=== PATIENT | female | born 1945 | race Caucasian/White ===

== ENCOUNTER 2018-05-16 16:45 | Emergency (ER) | payer MEDICAID ==
[2018-05-16] MEDS: HYDROCODONE/APAP (5/325) TAB PO (17:25)
[2018-05-16 17:36] LABS: URINE BLOOD (Dip) POC Negative (NEGATIVE); URINE KETONES (Dip) POC 1+ (NEGATIVE); URINE LEUKOCYTE EST (Dip) POC Negative (NEGATIVE); URINE NITRITE (Dip) POC Negative (NEGATIVE); URINE TOTAL PROTEIN POC 2+ (NEGATIVE)
[2018-05-16 17:36] LABS: URINE PH (Dip) POC 5.5 (5.0-8.5)
== END 2018-05-16 18:06 | disposition home or self-care (01) ==
LOC: FTE 16:45
DX: M54.5 Low back pain (principal); E11.9 Type 2 diabetes mellitus without complications
CPT/HCPCS: 81003; 99284

== ENCOUNTER → 2018-07-25 | Outpatient (CLI) | payer OTHER | END | disposition home or self-care (01) | LOC: HKI 13:13 | DX: M16.0 Bilateral primary osteoarthritis of hip (principal); I10 Essential (primary) hypertension; E11.8 Type 2 diabetes mellitus with unspecified complications; E78.5 Hyperlipidemia, unspecified; Z79.4 Long term (current) use of insulin; Z79.84 Long term (current) use of oral hypoglycemic drugs | CPT/HCPCS: 73523 ==

== ENCOUNTER → 2018-08-21 | Outpatient (CLI) | payer OTHER | END | disposition home or self-care (01) | LOC: HKI 09:10 | DX: M54.9 Dorsalgia, unspecified (principal); M54.16 Radiculopathy, lumbar region | CPT/HCPCS: Z7500 ==

== ENCOUNTER → 2018-09-25 | Outpatient (CLI) | payer OTHER | END | disposition home or self-care (01) | LOC: HKI 08:58 | DX: M16.0 Bilateral primary osteoarthritis of hip (principal); I10 Essential (primary) hypertension; E11.8 Type 2 diabetes mellitus with unspecified complications; Z79.4 Long term (current) use of insulin; Z79.84 Long term (current) use of oral hypoglycemic drugs; E78.5 Hyperlipidemia, unspecified | CPT/HCPCS: Z7500 ==

== ENCOUNTER → 2019-02-27 | Outpatient (CLI) | payer OTHER | END | disposition home or self-care (01) | LOC: HKI 15:10 | DX: M25.552 Pain in left hip (principal); M25.551 Pain in right hip; M16.0 Bilateral primary osteoarthritis of hip | CPT/HCPCS: 73523 ==

== ENCOUNTER 2019-05-16 05:38 | Inpatient (IN) | payer OTHER ==
[2019-05-16] MEDS: ACETAMINOPHEN 500 MG TAB PO (06:36)
[2019-05-16] MEDS: DEXAMETHASONE 4 MG/ML 1 ML INJ IV (06:36)
[2019-05-16] MEDS: ONDANSETRON 4 MG INJ IV ×3 (06:36→18:47)
[2019-05-16] MEDS: oxyCODONE (CR) 10 MG TAB [oxyCONTIN] PO (06:37)
[2019-05-16] MEDS: LANSOPRAZOLE 30 MG CAP PO (06:37)
[2019-05-16] MEDS ORDERED: TRANEXAMIC ACID 1 GM/100 ML (PMX) (07:00)
[2019-05-16] MEDS: CEFAZOLIN 1 GM/50 ML (PMX) 50 ML IVPB (07:00)
[2019-05-16] MEDS ORDERED: PHENYLephrine (100 MCG/ML) 10ML SYG (07:00)
[2019-05-16] MEDS ORDERED: EPHEDrine 25 MG/5 ML SYG (07:00)
[2019-05-16] MEDS ORDERED: POLYMYXIN B 500000 UNIT INJ (07:02)
[2019-05-16] MEDS ORDERED: TRANEXAMIC ACID 1GM/100ML(PMX) 100 ML (07:03)
[2019-05-16] MEDS ORDERED: HIP PAIN COCKTAIL VANCO INJ ×2 (07:30→15:30)
[2019-05-16] MEDS ORDERED: ROCURONIUM 50 MG INJ (07:38)
[2019-05-16] MEDS ORDERED: ETOMIDATE 20 MG INJ (07:38)
[2019-05-16] MEDS ORDERED: CEFAZOLIN 1 GM INJ (07:38)
[2019-05-16] MEDS ORDERED: MIDAZOLAM 1 MG/ML 2 ML INJ (07:39)
[2019-05-16] MEDS ORDERED: morphine SULFATE/PF (10 MG/10 ML) INJ (07:39)
[2019-05-16] MEDS ORDERED: ROPIVACAINE 0.5 % 30 ML VIAL (07:46)
[2019-05-16] MEDS: POLYMYXIN B 500000 UNIT INJ IRR (08:27)
[2019-05-16] MEDS: BACITRACIN 50000 UNITS INJ (08:27)
[2019-05-16] MEDS: TRANEXAMIC ACID 1GM/100ML(PMX) 100 ML PRE-OP X1 IVPB (08:28)
[2019-05-16] MEDS ORDERED: METOCLOPRAMIDE 10 MG INJ (08:35)
[2019-05-16] MEDS ORDERED: DEXAMETHASONE 4 MG/ML 5 ML INJ (08:35)
[2019-05-16] MEDS ORDERED: ONDANSETRON 4 MG INJ (08:35)
[2019-05-16] MEDS ORDERED: KETOROLAC 30 MG INJ (08:35)
[2019-05-16] MEDS ORDERED: HETASTARCH 6% NACL 500 ML (08:49)
[2019-05-16] MEDS: TRANEXAMIC ACID 1GM/100ML(PMX) 100 ML INTRA-OP X1 IVPB (09:32)
[2019-05-16] MEDS ORDERED: SUGAMMADEX SODIUM 200 MG/2 ML VIAL IV ×2 (09:38→09:41)
[2019-05-16] MEDS ORDERED: ONDANSETRON 4 MG INJ IV ×3 (10:30→22:30)
[2019-05-16] MEDS ORDERED: OXYCODONE/ACETAMINOPHEN (5/325) TAB PO ×2 (10:30)
[2019-05-16] MEDS ORDERED: DIPHENHYDRAMINE 50 MG INJ IV ×2 (10:30)
[2019-05-16] MEDS ORDERED: MEPERIDINE 25 MG INJ IV (10:30)
[2019-05-16] MEDS ORDERED: HYDROCODONE/APAP (5/325) TAB PO (10:30)
[2019-05-16] MEDS ORDERED: NACL 0.9% 3 ML SYG IV (10:30)
[2019-05-16] MEDS ORDERED: HYDROmorphONE 1 MG/5 ML IV SYRINGE IV ×2 (10:30)
[2019-05-16] MEDS ORDERED: oxyCODONE 5 MG TAB PO (10:30)
[2019-05-16] MEDS ORDERED: METOCLOPRAMIDE 10 MG INJ IV ×2 (10:30→22:00)
[2019-05-16] MEDS ORDERED: NALBUPHINE HCL (10 MG/1 ML) INJ IV (10:30)
[2019-05-16] MEDS ORDERED: HYDROmorphONE 0.5 MG/0.5 ML SYG IV ×2 (10:30)
[2019-05-16] MEDS ORDERED: NALOXONE (0.4 MG/ML) INJ IV ×2 (10:30)
[2019-05-16] MEDS ORDERED: ACETAMINOPHEN 500 MG TAB PO (10:30)
[2019-05-16] MEDS ORDERED: FENTAnyl 50 MCG/ML VIAL IV ×2 (10:30)
[2019-05-16] MEDS ORDERED: morphine 2 MG INJ IV (10:30)
[2019-05-16] MEDS: CEFAZOLIN 2 GM/50 ML (PMX) 50 ML IVPB ×2 (11:01→18:29)
[2019-05-16] MEDS: DOCUSATE SODIUM 100 MG CAP PO (11:08)
[2019-05-16] MEDS: INSULIN ASPART [NOVOLOG] 3 ML PEN SC ×6 (12:00→21:00)
[2019-05-16] MEDS ORDERED: DEXTROSE 50% 50 ML SYRINGE IV ×2 (13:00)
[2019-05-16] MEDS ORDERED: GLUCOSE GEL 15 GRAM TUBE PO ×2 (13:00)
[2019-05-16] MEDS ORDERED: GLUCOSE GEL 15 GRAM TUBE BUCCAL (13:00)
[2019-05-16] MEDS ORDERED: GLUCAGON 1 MG INJ IM (13:00)
[2019-05-16] MEDS: SOD CHLORIDE 0.45% 1,000 ML IV (13:35)
[2019-05-16] MEDS: AMLODIPINE 10 MG TAB PO (13:44)
[2019-05-16] MEDS: GABAPENTIN 100 MG CAP PO ×2 (13:45→20:54)
[2019-05-16] MEDS: morphine 2 MG INJ IV (18:29)
[2019-05-16] MEDS ORDERED: INSULIN GLARGINE [LANTus] (100 UNITS/ML) SYG SC (20:00)
[2019-05-16] MEDS: INSULIN GLARGINE [LANTus] (100 UNITS/ML) SYG SC (20:42)
[2019-05-16] MEDS: ATORVASTATIN 40 MG TAB PO (20:54)
[2019-05-16] MEDS ORDERED: ONDANSETRON INJ 8 MG in SOD CHLORIDE 0.9% 50 ML IV (22:30)
[2019-05-17] MEDS: ONDANSETRON 4 MG INJ IV ×2 (01:00→07:00)
[2019-05-17] MEDS: ACCU-CHEK XX (02:00)
[2019-05-17] MEDS: CEFAZOLIN 2 GM/50 ML (PMX) 50 ML IVPB (02:51)
[2019-05-17] MEDS ORDERED: PANTOPRAZOLE (EC) 40 MG TAB PO (06:00)
[2019-05-17] MEDS: HYDROCHLOROTHIAZIDE 12.5 MG CAP PO (06:00)
[2019-05-17 06:02] LABS: ADD MAN DIFF? NO
[2019-05-17 06:05] LABS: BASOPHILS % 0.1 % (0.0-2.0); HEMOGLOBIN 8.5 g/dl (12.0-16.0); LYMPHOCYTES # 1.3 10^3/ul (0.8-2.9); LYMPHOCYTES % 8.4 % (15.0-51.0); MEAN CORPUSCULAR HEMOGLOBIN 28.2 pg (29.0-33.0); MEAN CORPUSCULAR HGB CONC 31.5 g/dl (32.0-37.0); MEAN CORPUSCULAR VOLUME 89.7 fl (82.0-101.0); MEAN PLATELET VOLUME 11.6 fl (7.4-10.4); MONOCYTE # 0.9 10^3/ul (0.3-0.9); MONOCYTES % 5.9 % (0.0-11.0); NEUTROPHIL # 12.7 10^3/ul (1.6-7.5); NEUTROPHILS % 84.9 % (39.0-77.0); PLATELET COUNT 230 10^3/UL (140-415); RED BLOOD COUNT 3.01 10^6/ul (4.20-5.40); RED CELL DISTRIBUTION WIDTH 12.8 % (11.5-14.5)
[2019-05-17] MEDS: PANTOPRAZOLE (EC) 40 MG TAB PO (06:20)
[2019-05-17 06:30] LABS: INR 1.05; PROTIME 13.8 Sec (11.9-14.9); PT RATIO 1.1
[2019-05-17 06:31] LABS: MAGNESIUM 1.9 mg/dl (1.7-2.5)
[2019-05-17 06:31] LABS: PHOSPHORUS 4.8 mg/dl (2.5-4.9)
[2019-05-17 06:49] LABS: ANION GAP 8 (5-13); BLOOD UREA NITROGEN 24 mg/dl (7-20); CALCIUM 8.1 mg/dl (8.4-10.2); CARBON DIOXIDE 29 mmol/L (21-31); CHLORIDE 109 mmol/L (97-110); CREATININE 0.69 mg/dl (0.44-1.00); GLUCOSE 146 mg/dl (70-220); POTASSIUM 4.3 mmol/L (3.5-5.1); SODIUM 146 mmol/L (135-144)
[2019-05-17] MEDS: INSULIN ASPART [NOVOLOG] 3 ML PEN SC ×7 (07:50→21:00)
[2019-05-17] MEDS: INSULIN GLARGINE [LANTus] (100 UNITS/ML) SYG SC ×2 (08:28→20:42)
[2019-05-17] MEDS: AMLODIPINE 10 MG TAB PO (08:30)
[2019-05-17] MEDS: LOSARTAN 50 MG TAB PO (08:30)
[2019-05-17] MEDS: CELECOXIB 100 MG CAP PO ×2 (08:37→20:22)
[2019-05-17] MEDS: FENOFIBRATE 145 MG TAB PO (08:37)
[2019-05-17] MEDS: ASPIRIN (EC) 81 MG TAB PO ×2 (08:39→20:23)
[2019-05-17] MEDS: GABAPENTIN 100 MG CAP PO ×3 (08:39→20:23)
[2019-05-17] MEDS: KETOROLAC 15 MG INJ IV ×2 (08:47→15:53)
[2019-05-17] MEDS ORDERED: AMLODIPINE 10 MG TAB PO (09:00)
[2019-05-17] MEDS: traMADol 50 MG TAB PO ×2 (11:55→20:23)
[2019-05-17] MEDS: SOD CHLORIDE 0.45% 1,000 ML IV (13:30)
[2019-05-17] MEDS ORDERED: HYDROCODONE/APAP (5/325) TAB PO (17:00)
[2019-05-17] MEDS: ATORVASTATIN 40 MG TAB PO (20:23)
[2019-05-18] MEDS: ACCU-CHEK XX (02:00)
[2019-05-18 05:05] LABS: ADD MAN DIFF? NO
[2019-05-18 05:12] LABS: WHITE BLOOD COUNT 9.9 10^3/ul (4.8-10.8)
[2019-05-18 05:12] LABS: BASOPHILS % 0.3 % (0.0-2.0); EOSINOPHILS # 0.1 10^3/ul (0.0-0.5); EOSINOPHILS % 0.7 % (0.0-7.0); HEMATOCRIT 24.7 % (37.0-47.0); HEMOGLOBIN 7.7 g/dl (12.0-16.0); LYMPHOCYTES # 2.3 10^3/ul (0.8-2.9); LYMPHOCYTES % 23.1 % (15.0-51.0); MEAN CORPUSCULAR HEMOGLOBIN 27.9 pg (29.0-33.0); MEAN CORPUSCULAR HGB CONC 31.2 g/dl (32.0-37.0); MEAN CORPUSCULAR VOLUME 89.5 fl (82.0-101.0); MEAN PLATELET VOLUME 11.5 fl (7.4-10.4); MONOCYTE # 0.9 10^3/ul (0.3-0.9); MONOCYTES % 8.6 % (0.0-11.0); NEUTROPHIL # 6.6 10^3/ul (1.6-7.5); NEUTROPHILS % 66.7 % (39.0-77.0); PLATELET COUNT 206 10^3/UL (140-415); RED BLOOD COUNT 2.76 10^6/ul (4.20-5.40)
[2019-05-18 05:30] LABS: INR 0.96; PROTIME 12.9 Sec (11.9-14.9)
[2019-05-18 05:36] LABS: MAGNESIUM 2.3 mg/dl (1.7-2.5)
[2019-05-18 05:36] LABS: PHOSPHORUS 3.3 mg/dl (2.5-4.9)
[2019-05-18 05:46] LABS: ANION GAP 6 (5-13); BLOOD UREA NITROGEN 30 mg/dl (7-20); CALCIUM 8.5 mg/dl (8.4-10.2); CARBON DIOXIDE 30 mmol/L (21-31); CHLORIDE 109 mmol/L (97-110); CREATININE 0.94 mg/dl (0.44-1.00); GLUCOSE 132 mg/dl (70-220); SODIUM 145 mmol/L (135-144)
[2019-05-18] MEDS: PANTOPRAZOLE (EC) 40 MG TAB PO (05:57)
[2019-05-18] MEDS: traMADol 50 MG TAB PO ×3 (05:57→18:06)
[2019-05-18] MEDS: HYDROCHLOROTHIAZIDE 12.5 MG CAP PO (06:00)
[2019-05-18] MEDS: INSULIN ASPART [NOVOLOG] 3 ML PEN SC ×7 (07:50→20:33)
[2019-05-18] MEDS: INSULIN GLARGINE [LANTus] (100 UNITS/ML) SYG SC ×2 (08:34→20:34)
[2019-05-18] MEDS: CELECOXIB 100 MG CAP PO ×2 (08:34→20:30)
[2019-05-18] MEDS: LOSARTAN 50 MG TAB PO (08:35)
[2019-05-18] MEDS: FENOFIBRATE 145 MG TAB PO (08:36)
[2019-05-18] MEDS: AMLODIPINE 10 MG TAB PO (08:36)
[2019-05-18] MEDS: ASPIRIN (EC) 81 MG TAB PO ×2 (08:36→20:30)
[2019-05-18] MEDS: GABAPENTIN 100 MG CAP PO ×3 (08:36→20:30)
[2019-05-18] MEDS: KETOROLAC 15 MG INJ IV (08:41)
[2019-05-18] MEDS: POLYETHYLENE GLYCOL 17 GM PACKET PO (18:15)
[2019-05-18] MEDS: DOCUSATE SODIUM 100 MG CAP PO (20:30)
[2019-05-18] MEDS: ATORVASTATIN 40 MG TAB PO (20:30)
[2019-05-19] MEDS: ACCU-CHEK XX (02:00)
[2019-05-19 05:22] LABS: ADD MAN DIFF? NO
[2019-05-19 05:35] LABS: BASOPHILS % 0.4 % (0.0-2.0); EOSINOPHILS # 0.2 10^3/ul (0.0-0.5); EOSINOPHILS % 1.9 % (0.0-7.0); HEMATOCRIT 25.1 % (37.0-47.0); HEMOGLOBIN 7.9 g/dl (12.0-16.0); LYMPHOCYTES # 2.5 10^3/ul (0.8-2.9); LYMPHOCYTES % 26.1 % (15.0-51.0); MEAN CORPUSCULAR HEMOGLOBIN 27.9 pg (29.0-33.0); MEAN CORPUSCULAR HGB CONC 31.5 g/dl (32.0-37.0); MEAN CORPUSCULAR VOLUME 88.7 fl (82.0-101.0); MEAN PLATELET VOLUME 11.7 fl (7.4-10.4); MONOCYTE # 0.8 10^3/ul (0.3-0.9); MONOCYTES % 7.8 % (0.0-11.0); NEUTROPHIL # 6.2 10^3/ul (1.6-7.5); NEUTROPHILS % 63.5 % (39.0-77.0); PLATELET COUNT 240 10^3/UL (140-415); RED BLOOD COUNT 2.83 10^6/ul (4.20-5.40); RED CELL DISTRIBUTION WIDTH 13.2 % (11.5-14.5)
[2019-05-19 05:35] LABS: WHITE BLOOD COUNT 9.7 10^3/ul (4.8-10.8)
[2019-05-19] MEDS: PANTOPRAZOLE (EC) 40 MG TAB PO (05:35)
[2019-05-19] MEDS: hydrALAzine 20 MG INJ IV (05:39)
[2019-05-19 05:41] LABS: IRON 17 ug/dl (35-150)
[2019-05-19] MEDS: HYDROCHLOROTHIAZIDE 12.5 MG CAP PO (05:48)
[2019-05-19 05:50] LABS: % IRON SATURATION 7 % SAT (22-52); TOTAL IRON BINDING CAPACITY 249 ug/dl (241-421)
[2019-05-19 06:04] LABS: MAGNESIUM 2.2 mg/dl (1.7-2.5)
[2019-05-19 06:04] LABS: PHOSPHORUS 2.9 mg/dl (2.5-4.9)
[2019-05-19 06:10] LABS: ANION GAP 6 (5-13); BLOOD UREA NITROGEN 28 mg/dl (7-20); CALCIUM 8.3 mg/dl (8.4-10.2); CARBON DIOXIDE 30 mmol/L (21-31); CHLORIDE 110 mmol/L (97-110); CREATININE 0.81 mg/dl (0.44-1.00); GLUCOSE 112 mg/dl (70-220); SODIUM 146 mmol/L (135-144)
[2019-05-19 06:40] LABS: FERRITIN 44.4 ng/ml (11.1-264.0)
[2019-05-19] MEDS: INSULIN ASPART [NOVOLOG] 3 ML PEN SC ×7 (07:50→22:01)
[2019-05-19] MEDS: LOSARTAN 50 MG TAB PO (09:24)
[2019-05-19] MEDS: AMLODIPINE 10 MG TAB PO (09:25)
[2019-05-19] MEDS: INSULIN GLARGINE [LANTus] (100 UNITS/ML) SYG SC ×2 (09:25→22:02)
[2019-05-19] MEDS: CELECOXIB 100 MG CAP PO (09:25)
[2019-05-19] MEDS: DOCUSATE SODIUM 100 MG CAP PO ×2 (09:25→21:54)
[2019-05-19] MEDS: GABAPENTIN 100 MG CAP PO (09:26)
[2019-05-19] MEDS: ASPIRIN (EC) 81 MG TAB PO ×2 (09:26→21:54)
[2019-05-19] MEDS: FENOFIBRATE 145 MG TAB PO (09:26)
[2019-05-19] MEDS ORDERED: KETOROLAC 15 MG INJ IM (11:30)
[2019-05-19] MEDS: SOD FERRIC GLUC COMPLX 125 MG in SOD CHLORIDE 0.9% 100 ML IVPB (12:34)
[2019-05-19] MEDS: KETOROLAC 15 MG INJ IV ×2 (12:34→17:23)
[2019-05-19] MEDS: GABAPENTIN 300 MG CAP PO ×2 (12:34→21:54)
[2019-05-19] MEDS: ATORVASTATIN 40 MG TAB PO (21:54)
[2019-05-19] MEDS: HALOPERIDOL 5 MG INJ IM (22:18)
[2019-05-19 22:30] LABS: ADD MAN DIFF? NO
[2019-05-19 22:33] LABS: BASOPHIL # 0.1 10^3/ul (0.0-0.1); BASOPHILS % 0.5 % (0.0-2.0); EOSINOPHILS # 0.2 10^3/ul (0.0-0.5); EOSINOPHILS % 1.7 % (0.0-7.0); HEMATOCRIT 25.2 % (37.0-47.0); HEMOGLOBIN 8.1 g/dl (12.0-16.0); LYMPHOCYTES # 2.2 10^3/ul (0.8-2.9); LYMPHOCYTES % 23.7 % (15.0-51.0); MEAN CORPUSCULAR HEMOGLOBIN 28.2 pg (29.0-33.0); MEAN CORPUSCULAR HGB CONC 32.1 g/dl (32.0-37.0); MEAN CORPUSCULAR VOLUME 87.8 fl (82.0-101.0); MEAN PLATELET VOLUME 11.2 fl (7.4-10.4); MONOCYTE # 0.6 10^3/ul (0.3-0.9); MONOCYTES % 6.5 % (0.0-11.0); NEUTROPHIL # 6.2 10^3/ul (1.6-7.5); NEUTROPHILS % 67.1 % (39.0-77.0); PLATELET COUNT 240 10^3/UL (140-415); RED BLOOD COUNT 2.87 10^6/ul (4.20-5.40); RED CELL DISTRIBUTION WIDTH 12.9 % (11.5-14.5)
[2019-05-19 22:33] LABS: WHITE BLOOD COUNT 9.3 10^3/ul (4.8-10.8)
[2019-05-19 22:50] LABS: ALANINE AMINOTRANSFERASE 20 IU/L (13-69); ALBUMIN 2.8 g/dl (3.3-4.9); ALBUMIN/GLOBULIN RATIO 1.03; ALKALINE PHOSPHATASE 67 IU/L (42-121); ANION GAP 7 (5-13); ASPARTATE AMINO TRANSFERASE 28 IU/L (15-46); BILIRUBIN,INDIRECT 0.6 mg/dl (0-1.1); BILIRUBIN,TOTAL 0.6 mg/dl (0.2-1.3); BLOOD UREA NITROGEN 21 mg/dl (7-20); CALCIUM 8.4 mg/dl (8.4-10.2); CARBON DIOXIDE 28 mmol/L (21-31); CHLORIDE 108 mmol/L (97-110); CREATININE 0.79 mg/dl (0.44-1.00); GLUCOSE 165 mg/dl (70-220); MAGNESIUM 2.1 mg/dl (1.7-2.5); SODIUM 143 mmol/L (135-144); TOTAL PROTEIN 5.5 g/dl (6.1-8.1)
[2019-05-19 23:01] LABS: TROPONIN-I 0.012 ng/ml (0.000-0.120)
[2019-05-20] MEDS: ACCU-CHEK XX (02:30)
[2019-05-20] MEDS: MAGNESIUM HYDROXIDE 30ML CUP PO (02:32)
[2019-05-20 05:19] LABS: ADD MAN DIFF? NO
[2019-05-20 05:22] LABS: WHITE BLOOD COUNT 9.5 10^3/ul (4.8-10.8)
[2019-05-20 05:22] LABS: BASOPHILS % 0.4 % (0.0-2.0); EOSINOPHILS # 0.2 10^3/ul (0.0-0.5); EOSINOPHILS % 2.2 % (0.0-7.0); HEMATOCRIT 25.9 % (37.0-47.0); HEMOGLOBIN 8.2 g/dl (12.0-16.0); LYMPHOCYTES # 2.3 10^3/ul (0.8-2.9); LYMPHOCYTES % 24.2 % (15.0-51.0); MEAN CORPUSCULAR HGB CONC 31.7 g/dl (32.0-37.0); MEAN CORPUSCULAR VOLUME 88.4 fl (82.0-101.0); MEAN PLATELET VOLUME 11.6 fl (7.4-10.4); MONOCYTE # 0.7 10^3/ul (0.3-0.9); MONOCYTES % 7.3 % (0.0-11.0); NEUTROPHIL # 6.2 10^3/ul (1.6-7.5); NEUTROPHILS % 65.6 % (39.0-77.0); PLATELET COUNT 251 10^3/UL (140-415); RED BLOOD COUNT 2.93 10^6/ul (4.20-5.40)
[2019-05-20 05:50] LABS: ANION GAP 6 (5-13); BLOOD UREA NITROGEN 17 mg/dl (7-20); CALCIUM 8.4 mg/dl (8.4-10.2); CARBON DIOXIDE 30 mmol/L (21-31); CHLORIDE 109 mmol/L (97-110); CREATININE 0.71 mg/dl (0.44-1.00); GLUCOSE 111 mg/dl (70-220); POTASSIUM 3.8 mmol/L (3.5-5.1); SODIUM 145 mmol/L (135-144)
[2019-05-20] MEDS: PANTOPRAZOLE (EC) 40 MG TAB PO (06:45)
[2019-05-20] MEDS: HYDROCHLOROTHIAZIDE 12.5 MG CAP PO (06:45)
[2019-05-20] MEDS: INSULIN ASPART [NOVOLOG] 3 ML PEN SC ×4 (07:50→12:31)
[2019-05-20] MEDS: LOSARTAN 50 MG TAB PO (08:46)
[2019-05-20] MEDS: ASPIRIN (EC) 81 MG TAB PO (08:46)
[2019-05-20] MEDS: AMLODIPINE 10 MG TAB PO (08:47)
[2019-05-20] MEDS: GABAPENTIN 300 MG CAP PO ×2 (08:47→12:26)
[2019-05-20] MEDS: FENOFIBRATE 145 MG TAB PO (08:47)
[2019-05-20] MEDS: DOCUSATE SODIUM 100 MG CAP PO (08:47)
[2019-05-20] MEDS: INSULIN GLARGINE [LANTus] (100 UNITS/ML) SYG SC (08:54)
[2019-05-20 13:07] LABS: TROPONIN-I < 0.012 ng/ml (0.000-0.120)
== END 2019-05-20 15:40 | DRG 470 ==
LOC: REC 05:38 → MS1 12:17
PROVIDERS: Orthopaedic Surgery Adult Reconstructive Orthopaedic Surgery
PROC: 0SR903Z Replacement of Right Hip Joint with Ceramic Synthetic Substitute, Open Approach (ICD-10-PCS; principal; 2019-05-16 07:28)
DX: M16.11 Unilateral primary osteoarthritis, right hip (principal); I10 Essential (primary) hypertension; E78.5 Hyperlipidemia, unspecified; E11.9 Type 2 diabetes mellitus without complications; K21.9 Gastro-esophageal reflux disease without esophagitis; Z79.4 Long term (current) use of insulin; D50.9 Iron deficiency anemia, unspecified
CPT/HCPCS: 72170; 73500; 73530; 80048; 80053; 82728; 82962; 83540; 83735; 84100; 84484; 85025; 85610; 88304; 88311; 93005; 93970; 97110; 97116; 97161; 97165; 97530; 97535

== ENCOUNTER 2019-05-20 17:13 | Inpatient (IN) | payer OTHER ==
[2019-05-20] MEDS ORDERED: ACETAMINOPHEN 325 MG TAB PO (18:00)
[2019-05-20] MEDS ORDERED: MAGNESIUM HYDROXIDE 30ML CUP PO ×2 (18:00→22:30)
[2019-05-20] MEDS ORDERED: LACTULOSE 30ML CUP PO (18:00)
[2019-05-20] MEDS ORDERED: PENDING SANTYL ORDER FOR WOUND CARE XX (18:00)
[2019-05-20] MEDS ORDERED: traMADol 50 MG TAB PO (22:00)
[2019-05-20] MEDS ORDERED: ASPIRIN (EC) 81 MG TAB PO (22:00)
[2019-05-20] MEDS ORDERED: KETOROLAC 15 MG INJ IV (22:00)
[2019-05-20] MEDS ORDERED: hydrALAzine 20 MG INJ IV (22:00)
[2019-05-20] MEDS ORDERED: GLUCAGON 1 MG INJ IM (22:30)
[2019-05-20] MEDS ORDERED: GLUCOSE GEL 15 GRAM TUBE PO ×2 (22:30)
[2019-05-20] MEDS ORDERED: DEXTROSE 50% 50 ML SYRINGE IV ×2 (22:30)
[2019-05-20] MEDS ORDERED: GLUCOSE GEL 15 GRAM TUBE BUCCAL (22:30)
[2019-05-20 22:32] LABS: ADD UMIC YES; UR ASCORBIC ACID NEGATIVE (NEGATIVE); UR BILIRUBIN (Dip) NEGATIVE (NEGATIVE); UR BLOOD (Dip) 1+ mg/dL (NEGATIVE); UR CLARITY CLEAR (CLEAR); UR COLOR STRAW (YELLOW); UR GLUCOSE (Dip) 3+ mg/dL (NEGATIVE); UR KETONES (Dip) NEGATIVE (NEGATIVE); UR LEUKOCYTE ESTERASE (Dip) NEGATIVE Leu/ul (NEGATIVE); UR NITRITE (Dip) NEGATIVE (NEGATIVE); UR RBC 0 /HPF (0-5); UR SPECIFIC GRAVITY (Dip) 1.003 (1.003-1.030); UR TOTAL PROTEIN (Dip) NEGATIVE (NEGATIVE); UR UROBILINOGEN (Dip) NEGATIVE (NEGATIVE); UR WBC 0 /HPF (0-5)
[2019-05-20] MEDS: ATORVASTATIN 40 MG TAB PO (22:57)
[2019-05-20] MEDS: GABAPENTIN 300 MG CAP PO (22:57)
[2019-05-20] MEDS: SENNA TAB PO (22:57)
[2019-05-20] MEDS: DOCUSATE SODIUM 100 MG CAP PO (22:57)
[2019-05-20] MEDS ORDERED: INSULIN GLARGINE [LANTus] (100 UNITS/ML) SYG SC ×2 (23:00→23:30)
[2019-05-20] MEDS: INSULIN ASPART [NOVOLOG] 3 ML PEN SC (23:13)
[2019-05-20] MEDS: INSULIN GLARGINE [LANTus] (100 UNITS/ML) SYG SC (23:23)
[2019-05-21] MEDS ORDERED: METOCLOPRAMIDE 10 MG INJ IV ×3
[2019-05-21] MEDS: ACCU-CHEK XX (02:41)
[2019-05-21] MEDS: PANTOPRAZOLE (EC) 40 MG TAB PO (06:17)
[2019-05-21 06:37] LABS: ADD MAN DIFF? NO
[2019-05-21 06:45] LABS: BASOPHILS % 0.4 % (0.0-2.0); EOSINOPHILS # 0.2 10^3/ul (0.0-0.5); EOSINOPHILS % 2.2 % (0.0-7.0); HEMATOCRIT 26.5 % (37.0-47.0); HEMOGLOBIN 8.3 g/dl (12.0-16.0); LYMPHOCYTES # 2.3 10^3/ul (0.8-2.9); LYMPHOCYTES % 22.6 % (15.0-51.0); MEAN CORPUSCULAR HEMOGLOBIN 27.7 pg (29.0-33.0); MEAN CORPUSCULAR HGB CONC 31.3 g/dl (32.0-37.0); MEAN CORPUSCULAR VOLUME 88.3 fl (82.0-101.0); MEAN PLATELET VOLUME 11.1 fl (7.4-10.4); MONOCYTE # 0.9 10^3/ul (0.3-0.9); MONOCYTES % 8.5 % (0.0-11.0); NEUTROPHIL # 6.6 10^3/ul (1.6-7.5); NEUTROPHILS % 65.3 % (39.0-77.0); PLATELET COUNT 263 10^3/UL (140-415); RED CELL DISTRIBUTION WIDTH 13.2 % (11.5-14.5)
[2019-05-21 06:45] LABS: WHITE BLOOD COUNT 10.1 10^3/ul (4.8-10.8)
[2019-05-21 07:12] LABS: ALANINE AMINOTRANSFERASE 19 IU/L (13-69); ALBUMIN 2.8 g/dl (3.3-4.9); ALBUMIN/GLOBULIN RATIO 1.07; ALKALINE PHOSPHATASE 65 IU/L (42-121); ANION GAP 5 (5-13); ASPARTATE AMINO TRANSFERASE 17 IU/L (15-46); BILIRUBIN,INDIRECT 0.5 mg/dl (0-1.1); BILIRUBIN,TOTAL 0.5 mg/dl (0.2-1.3); BLOOD UREA NITROGEN 20 mg/dl (7-20); CALCIUM 8.4 mg/dl (8.4-10.2); CARBON DIOXIDE 30 mmol/L (21-31); CHLORIDE 110 mmol/L (97-110); GLUCOSE 169 mg/dl (70-220); POTASSIUM 4.1 mmol/L (3.5-5.1); SODIUM 145 mmol/L (135-144); TOTAL PROTEIN 5.4 g/dl (6.1-8.1)
[2019-05-21] MEDS ORDERED: INSULIN ASPART [NOVOLOG] 3 ML PEN SC (07:35)
[2019-05-21] MEDS: INSULIN ASPART [NOVOLOG] 3 ML PEN SC ×7 (08:31→21:33)
[2019-05-21] MEDS: INSULIN GLARGINE [LANTus] (100 UNITS/ML) SYG SC ×2 (08:34→21:44)
[2019-05-21] MEDS: DOCUSATE SODIUM 100 MG CAP PO ×2 (08:40→21:31)
[2019-05-21] MEDS: LOSARTAN 50 MG TAB PO (08:40)
[2019-05-21] MEDS: FENOFIBRATE 145 MG TAB PO (08:41)
[2019-05-21] MEDS: HYDROCHLOROTHIAZIDE 12.5 MG CAP PO (08:42)
[2019-05-21] MEDS: AMLODIPINE 10 MG TAB PO (08:43)
[2019-05-21] MEDS: GABAPENTIN 300 MG CAP PO ×3 (08:43→21:31)
[2019-05-21] MEDS: ASPIRIN (EC) 81 MG TAB PO ×2 (08:43→21:32)
[2019-05-21] MEDS: SOD FERRIC GLUC COMPLX 125 MG in SOD CHLORIDE 0.9% 100 ML IVPB (13:58)
[2019-05-21] MEDS ORDERED: INSULIN GLARGINE [LANTus] (100 UNITS/ML) SYG SC (20:00)
[2019-05-21] MEDS: SENNA TAB PO (21:31)
[2019-05-21] MEDS: ATORVASTATIN 40 MG TAB PO (21:31)
[2019-05-21] MEDS: FERROUS SULFATE (EC) 325 MG TAB PO (21:31)
[2019-05-22] MEDS: ACCU-CHEK XX (02:00)
[2019-05-22] MEDS: PANTOPRAZOLE (EC) 40 MG TAB PO (05:54)
[2019-05-22] MEDS: BISACODYL 10 MG SUPP PR (05:54)
[2019-05-22] MEDS: INSULIN ASPART [NOVOLOG] 3 ML PEN SC ×7 (08:04→21:00)
[2019-05-22] MEDS: INSULIN GLARGINE [LANTus] (100 UNITS/ML) SYG SC ×2 (08:06→20:52)
[2019-05-22] MEDS: ASPIRIN (EC) 81 MG TAB PO ×2 (09:52→20:53)
[2019-05-22] MEDS: HYDROCODONE/APAP (5/325) TAB PO (09:52)
[2019-05-22] MEDS: FENOFIBRATE 145 MG TAB PO (09:53)
[2019-05-22] MEDS: DOCUSATE SODIUM 100 MG CAP PO ×2 (09:53→20:57)
[2019-05-22] MEDS: LOSARTAN 50 MG TAB PO (09:53)
[2019-05-22] MEDS: AMLODIPINE 10 MG TAB PO (09:54)
[2019-05-22] MEDS: HYDROCHLOROTHIAZIDE 12.5 MG CAP PO (09:54)
[2019-05-22] MEDS: GABAPENTIN 300 MG CAP PO ×3 (09:54→20:53)
[2019-05-22] MEDS: FERROUS SULFATE (EC) 325 MG TAB PO ×2 (09:54→20:53)
[2019-05-22] MEDS: ATORVASTATIN 40 MG TAB PO (20:53)
[2019-05-22] MEDS: SENNA TAB PO (20:57)
[2019-05-23] MEDS: HYDROCODONE/APAP (5/325) TAB PO ×2 (00:37→19:49)
[2019-05-23] MEDS: ACCU-CHEK XX (02:00)
[2019-05-23] MEDS: PANTOPRAZOLE (EC) 40 MG TAB PO (06:38)
[2019-05-23] MEDS: INSULIN ASPART [NOVOLOG] 3 ML PEN SC ×7 (07:35→21:00)
[2019-05-23] MEDS: INSULIN GLARGINE [LANTus] (100 UNITS/ML) SYG SC (07:53)
[2019-05-23] MEDS: DOCUSATE SODIUM 100 MG CAP PO ×2 (09:41→21:08)
[2019-05-23] MEDS: GABAPENTIN 300 MG CAP PO ×3 (09:42→21:09)
[2019-05-23] MEDS: FERROUS SULFATE (EC) 325 MG TAB PO ×2 (09:42→21:09)
[2019-05-23] MEDS: HYDROCHLOROTHIAZIDE 12.5 MG CAP PO (09:42)
[2019-05-23] MEDS: FENOFIBRATE 145 MG TAB PO (09:42)
[2019-05-23] MEDS: ASPIRIN (EC) 81 MG TAB PO ×2 (09:42→21:12)
[2019-05-23] MEDS: AMLODIPINE 10 MG TAB PO (09:43)
[2019-05-23] MEDS: LOSARTAN 50 MG TAB PO (09:49)
[2019-05-23] MEDS: SENNA TAB PO (21:08)
[2019-05-23] MEDS: ATORVASTATIN 40 MG TAB PO (21:09)
[2019-05-24] MEDS: ACCU-CHEK XX (02:00)
[2019-05-24] MEDS: PANTOPRAZOLE (EC) 40 MG TAB PO (06:27)
[2019-05-24] MEDS: INSULIN ASPART [NOVOLOG] 3 ML PEN SC ×7 (08:14→20:18)
[2019-05-24] MEDS: INSULIN GLARGINE [LANTus] (100 UNITS/ML) SYG SC (08:17)
[2019-05-24] MEDS: GABAPENTIN 300 MG CAP PO ×3 (08:18→20:18)
[2019-05-24] MEDS: HYDROCODONE/APAP (5/325) TAB PO ×2 (08:18→22:28)
[2019-05-24] MEDS: FERROUS SULFATE (EC) 325 MG TAB PO ×2 (08:18→20:18)
[2019-05-24] MEDS: AMLODIPINE 10 MG TAB PO (08:18)
[2019-05-24] MEDS: HYDROCHLOROTHIAZIDE 12.5 MG CAP PO (08:19)
[2019-05-24] MEDS: FENOFIBRATE 145 MG TAB PO (08:19)
[2019-05-24] MEDS: ASPIRIN (EC) 81 MG TAB PO ×2 (08:19→20:18)
[2019-05-24] MEDS: DOCUSATE SODIUM 100 MG CAP PO ×2 (08:19→20:18)
[2019-05-24] MEDS: LOSARTAN 50 MG TAB PO (08:19)
[2019-05-24] MEDS: SENNA TAB PO (20:18)
[2019-05-24] MEDS: ATORVASTATIN 40 MG TAB PO (20:18)
[2019-05-25] MEDS: ACCU-CHEK XX ×2 (02:00→22:50)
[2019-05-25] MEDS: PANTOPRAZOLE (EC) 40 MG TAB PO (06:21)
[2019-05-25] MEDS: HYDROCODONE/APAP (5/325) TAB PO (06:21)
[2019-05-25] MEDS: INSULIN ASPART [NOVOLOG] 3 ML PEN SC ×8 (07:33→20:49)
[2019-05-25] MEDS: INSULIN GLARGINE [LANTus] (100 UNITS/ML) SYG SC (07:35)
[2019-05-25] MEDS: AMLODIPINE 10 MG TAB PO (08:58)
[2019-05-25] MEDS: HYDROCHLOROTHIAZIDE 12.5 MG CAP PO (08:58)
[2019-05-25] MEDS: DOCUSATE SODIUM 100 MG CAP PO ×2 (08:59→20:45)
[2019-05-25] MEDS: ASPIRIN (EC) 81 MG TAB PO ×2 (08:59→20:45)
[2019-05-25] MEDS: FENOFIBRATE 145 MG TAB PO (08:59)
[2019-05-25] MEDS: LOSARTAN 50 MG TAB PO (08:59)
[2019-05-25] MEDS: FERROUS SULFATE (EC) 325 MG TAB PO ×2 (08:59→20:45)
[2019-05-25] MEDS: GABAPENTIN 300 MG CAP PO ×3 (08:59→20:45)
[2019-05-25] MEDS: SENNA TAB PO (20:45)
[2019-05-25] MEDS: ATORVASTATIN 40 MG TAB PO (20:45)
[2019-05-26] MEDS: ACCU-CHEK XX (02:03)
[2019-05-26] MEDS: PANTOPRAZOLE (EC) 40 MG TAB PO (06:13)
[2019-05-26] MEDS: INSULIN ASPART [NOVOLOG] 3 ML PEN SC ×7 (07:46→20:47)
[2019-05-26] MEDS: INSULIN GLARGINE [LANTus] (100 UNITS/ML) SYG SC (07:47)
[2019-05-26 09:01] LABS: HEMOGLOBIN A1C 6.5 % (0-5.9)
[2019-05-26] MEDS: ASPIRIN (EC) 81 MG TAB PO ×2 (09:04→20:38)
[2019-05-26] MEDS: LOSARTAN 50 MG TAB PO (09:05)
[2019-05-26] MEDS: FENOFIBRATE 145 MG TAB PO (09:05)
[2019-05-26] MEDS: FERROUS SULFATE (EC) 325 MG TAB PO ×2 (09:05→20:38)
[2019-05-26] MEDS: HYDROCHLOROTHIAZIDE 12.5 MG CAP PO (09:05)
[2019-05-26] MEDS: AMLODIPINE 10 MG TAB PO (09:05)
[2019-05-26] MEDS: DOCUSATE SODIUM 100 MG CAP PO ×2 (09:05→20:37)
[2019-05-26] MEDS: GABAPENTIN 300 MG CAP PO ×3 (09:06→20:37)
[2019-05-26] MEDS: HYDROCODONE/APAP (5/325) TAB PO (09:12)
[2019-05-26] MEDS: SENNA TAB PO (20:38)
[2019-05-26] MEDS: ATORVASTATIN 40 MG TAB PO (20:38)
[2019-05-27] MEDS: ACCU-CHEK XX (02:00)
[2019-05-27] MEDS: HYDROCODONE/APAP (5/325) TAB PO (06:00)
[2019-05-27] MEDS: PANTOPRAZOLE (EC) 40 MG TAB PO (06:00)
[2019-05-27] MEDS: INSULIN ASPART [NOVOLOG] 3 ML PEN SC ×7 (07:53→20:58)
[2019-05-27] MEDS: INSULIN GLARGINE [LANTus] (100 UNITS/ML) SYG SC (07:55)
[2019-05-27] MEDS: GABAPENTIN 300 MG CAP PO ×3 (08:43→20:56)
[2019-05-27] MEDS: ASPIRIN (EC) 81 MG TAB PO ×2 (08:43→20:56)
[2019-05-27] MEDS: DOCUSATE SODIUM 100 MG CAP PO ×2 (08:43→20:56)
[2019-05-27] MEDS: FERROUS SULFATE (EC) 325 MG TAB PO ×2 (08:43→20:56)
[2019-05-27] MEDS: AMLODIPINE 10 MG TAB PO (08:43)
[2019-05-27] MEDS: HYDROCHLOROTHIAZIDE 12.5 MG CAP PO (08:44)
[2019-05-27] MEDS: FENOFIBRATE 145 MG TAB PO (08:44)
[2019-05-27] MEDS: LOSARTAN 50 MG TAB PO (08:44)
[2019-05-27] MEDS: ATORVASTATIN 40 MG TAB PO (20:57)
[2019-05-27] MEDS: SENNA TAB PO (20:57)
[2019-05-28] MEDS: ACCU-CHEK XX (02:11)
[2019-05-28] MEDS: PANTOPRAZOLE (EC) 40 MG TAB PO (06:41)
[2019-05-28] MEDS: INSULIN ASPART [NOVOLOG] 3 ML PEN SC ×7 (07:54→20:14)
[2019-05-28] MEDS: INSULIN GLARGINE [LANTus] (100 UNITS/ML) SYG SC (07:55)
[2019-05-28] MEDS: FENOFIBRATE 145 MG TAB PO (08:23)
[2019-05-28] MEDS: FERROUS SULFATE (EC) 325 MG TAB PO ×2 (08:24→20:13)
[2019-05-28] MEDS: DOCUSATE SODIUM 100 MG CAP PO ×2 (08:24→20:13)
[2019-05-28] MEDS: GABAPENTIN 300 MG CAP PO ×3 (08:24→20:13)
[2019-05-28] MEDS: ASPIRIN (EC) 81 MG TAB PO ×2 (08:24→20:13)
[2019-05-28] MEDS: AMLODIPINE 10 MG TAB PO (08:24)
[2019-05-28] MEDS: LOSARTAN 50 MG TAB PO (08:25)
[2019-05-28] MEDS: HYDROCHLOROTHIAZIDE 12.5 MG CAP PO (08:25)
[2019-05-28] MEDS: HYDROCODONE/APAP (5/325) TAB PO (10:21)
[2019-05-28] MEDS: ATORVASTATIN 40 MG TAB PO (20:13)
[2019-05-28] MEDS: SENNA TAB PO (20:13)
[2019-05-29] MEDS: ACCU-CHEK XX (02:16)
[2019-05-29] MEDS: PANTOPRAZOLE (EC) 40 MG TAB PO (06:11)
[2019-05-29] MEDS: HYDROCODONE/APAP (5/325) TAB PO ×2 (06:14→21:52)
[2019-05-29] MEDS: INSULIN ASPART [NOVOLOG] 3 ML PEN SC ×7 (07:56→20:57)
[2019-05-29] MEDS: INSULIN GLARGINE [LANTus] (100 UNITS/ML) SYG SC (07:58)
[2019-05-29] MEDS: ASPIRIN (EC) 81 MG TAB PO ×2 (08:15→20:56)
[2019-05-29] MEDS: AMLODIPINE 10 MG TAB PO (08:15)
[2019-05-29] MEDS: FENOFIBRATE 145 MG TAB PO (08:15)
[2019-05-29] MEDS: LOSARTAN 50 MG TAB PO (08:15)
[2019-05-29] MEDS: FERROUS SULFATE (EC) 325 MG TAB PO ×2 (08:15→20:55)
[2019-05-29] MEDS: GABAPENTIN 300 MG CAP PO ×3 (08:15→20:56)
[2019-05-29] MEDS: HYDROCHLOROTHIAZIDE 12.5 MG CAP PO (08:16)
[2019-05-29] MEDS: DOCUSATE SODIUM 100 MG CAP PO ×2 (08:16→20:56)
[2019-05-29] MEDS: SENNA TAB PO (20:56)
[2019-05-29] MEDS: ATORVASTATIN 40 MG TAB PO (20:56)
[2019-05-30] MEDS: ACCU-CHEK XX (02:00)
[2019-05-30] MEDS: PANTOPRAZOLE (EC) 40 MG TAB PO (06:22)
[2019-05-30] MEDS: INSULIN ASPART [NOVOLOG] 3 ML PEN SC ×7 (08:01→21:06)
[2019-05-30] MEDS: INSULIN GLARGINE [LANTus] (100 UNITS/ML) SYG SC (08:03)
[2019-05-30] MEDS: FENOFIBRATE 145 MG TAB PO (08:33)
[2019-05-30] MEDS: ASPIRIN (EC) 81 MG TAB PO ×2 (08:33→21:02)
[2019-05-30] MEDS: FERROUS SULFATE (EC) 325 MG TAB PO ×2 (08:34→21:02)
[2019-05-30] MEDS: DOCUSATE SODIUM 100 MG CAP PO ×2 (08:34→21:02)
[2019-05-30] MEDS: GABAPENTIN 300 MG CAP PO ×3 (08:34→21:02)
[2019-05-30] MEDS: LOSARTAN 50 MG TAB PO (08:34)
[2019-05-30] MEDS: AMLODIPINE 10 MG TAB PO (08:34)
[2019-05-30] MEDS: HYDROCHLOROTHIAZIDE 12.5 MG CAP PO (08:34)
[2019-05-30] MEDS: ATORVASTATIN 40 MG TAB PO (21:02)
[2019-05-30] MEDS: SENNA TAB PO (21:02)
[2019-05-31] MEDS: ACCU-CHEK XX ×4 (02:46→20:12)
[2019-05-31] MEDS: PANTOPRAZOLE (EC) 40 MG TAB PO (06:17)
[2019-05-31] MEDS: INSULIN ASPART [NOVOLOG] 3 ML PEN SC ×7 (08:00→20:09)
[2019-05-31] MEDS: INSULIN GLARGINE [LANTus] (100 UNITS/ML) SYG SC (08:01)
[2019-05-31] MEDS: DOCUSATE SODIUM 100 MG CAP PO ×2 (09:06→20:10)
[2019-05-31] MEDS: ASPIRIN (EC) 81 MG TAB PO ×2 (09:06→20:10)
[2019-05-31] MEDS: GABAPENTIN 300 MG CAP PO ×3 (09:06→20:10)
[2019-05-31] MEDS: FENOFIBRATE 145 MG TAB PO (09:06)
[2019-05-31] MEDS: FERROUS SULFATE (EC) 325 MG TAB PO ×2 (09:06→20:10)
[2019-05-31] MEDS: AMLODIPINE 10 MG TAB PO (09:07)
[2019-05-31] MEDS: LOSARTAN 50 MG TAB PO (09:07)
[2019-05-31] MEDS: HYDROCHLOROTHIAZIDE 12.5 MG CAP PO (09:07)
[2019-05-31] MEDS: metFORMIN 500 MG TAB PO (17:15)
[2019-05-31] MEDS: SENNA TAB PO (20:10)
[2019-05-31] MEDS: ATORVASTATIN 40 MG TAB PO (20:10)
[2019-05-31] MEDS: HYDROCODONE/APAP (5/325) TAB PO (21:40)
[2019-06-01] MEDS: ACCU-CHEK XX ×5 (02:03→21:15)
[2019-06-01] MEDS: PANTOPRAZOLE (EC) 40 MG TAB PO (06:28)
[2019-06-01] MEDS: HYDROCODONE/APAP (5/325) TAB PO ×2 (06:51→12:54)
[2019-06-01] MEDS: INSULIN ASPART [NOVOLOG] 3 ML PEN SC ×7 (07:56→21:00)
[2019-06-01] MEDS: DOCUSATE SODIUM 100 MG CAP PO ×2 (08:37→21:15)
[2019-06-01] MEDS: FENOFIBRATE 145 MG TAB PO (08:38)
[2019-06-01] MEDS: AMLODIPINE 10 MG TAB PO (08:38)
[2019-06-01] MEDS: HYDROCHLOROTHIAZIDE 12.5 MG CAP PO (08:38)
[2019-06-01] MEDS: GABAPENTIN 300 MG CAP PO ×3 (08:38→21:15)
[2019-06-01] MEDS: LOSARTAN 50 MG TAB PO (08:39)
[2019-06-01] MEDS: ASPIRIN (EC) 81 MG TAB PO ×2 (08:39→21:15)
[2019-06-01] MEDS: EMPAGLIFLOZIN 10 MG TABLET PO (08:39)
[2019-06-01] MEDS: FERROUS SULFATE (EC) 325 MG TAB PO ×2 (08:39→21:15)
[2019-06-01] MEDS: metFORMIN 500 MG TAB PO ×2 (08:39→17:18)
[2019-06-01] MEDS ORDERED: EMPAGLIFLOZIN 10 MG TABLET PO (09:00)
[2019-06-01] MEDS: INSULIN GLARGINE [LANTus] (100 UNITS/ML) SYG SC (09:14)
[2019-06-01] MEDS: SENNA TAB PO (21:15)
[2019-06-01] MEDS: ATORVASTATIN 40 MG TAB PO (21:15)
[2019-06-02] MEDS: ACCU-CHEK XX ×5 (02:00→21:00)
[2019-06-02] MEDS: PANTOPRAZOLE (EC) 40 MG TAB PO (06:45)
[2019-06-02] MEDS: HYDROCODONE/APAP (5/325) TAB PO (06:46)
[2019-06-02] MEDS: INSULIN ASPART [NOVOLOG] 3 ML PEN SC ×7 (07:35→21:00)
[2019-06-02] MEDS: GABAPENTIN 300 MG CAP PO ×3 (09:00→21:03)
[2019-06-02] MEDS: INSULIN GLARGINE [LANTus] (100 UNITS/ML) SYG SC (09:55)
[2019-06-02] MEDS: metFORMIN 500 MG TAB PO (09:58)
[2019-06-02] MEDS: EMPAGLIFLOZIN 10 MG TABLET PO (10:00)
[2019-06-02 10:58] LABS: ANION GAP 6 (5-13); BLOOD UREA NITROGEN 21 mg/dl (7-20); CALCIUM 8.9 mg/dl (8.4-10.2); CARBON DIOXIDE 29 mmol/L (21-31); CHLORIDE 109 mmol/L (97-110); GLUCOSE 125 mg/dl (70-220); POTASSIUM 4.2 mmol/L (3.5-5.1); SODIUM 144 mmol/L (135-144)
[2019-06-02] MEDS: ASPIRIN (EC) 81 MG TAB PO ×2 (12:32→21:03)
[2019-06-02] MEDS: HYDROCHLOROTHIAZIDE 12.5 MG CAP PO (12:33)
[2019-06-02] MEDS: FENOFIBRATE 145 MG TAB PO (12:33)
[2019-06-02] MEDS: FERROUS SULFATE (EC) 325 MG TAB PO ×2 (12:33→21:03)
[2019-06-02] MEDS: DOCUSATE SODIUM 100 MG CAP PO ×2 (12:34→21:03)
[2019-06-02] MEDS: AMLODIPINE 10 MG TAB PO (12:34)
[2019-06-02] MEDS: LOSARTAN 50 MG TAB PO (12:35)
[2019-06-02] MEDS: SENNA TAB PO (21:03)
[2019-06-02] MEDS: ATORVASTATIN 40 MG TAB PO (21:03)
[2019-06-03] MEDS: ACCU-CHEK XX ×3 (02:00→11:30)
[2019-06-03] MEDS: PANTOPRAZOLE (EC) 40 MG TAB PO (06:13)
[2019-06-03] MEDS: INSULIN ASPART [NOVOLOG] 3 ML PEN SC ×4 (08:00→12:07)
[2019-06-03] MEDS: INSULIN GLARGINE [LANTus] (100 UNITS/ML) SYG SC (08:02)
[2019-06-03] MEDS: FERROUS SULFATE (EC) 325 MG TAB PO (08:18)
[2019-06-03] MEDS: DOCUSATE SODIUM 100 MG CAP PO (08:18)
[2019-06-03] MEDS: GABAPENTIN 300 MG CAP PO ×2 (08:18→13:28)
[2019-06-03] MEDS: FENOFIBRATE 145 MG TAB PO (08:19)
[2019-06-03] MEDS: ASPIRIN (EC) 81 MG TAB PO (08:19)
[2019-06-03] MEDS: AMLODIPINE 10 MG TAB PO (08:22)
[2019-06-03] MEDS: HYDROCHLOROTHIAZIDE 12.5 MG CAP PO (08:22)
[2019-06-03] MEDS: LOSARTAN 50 MG TAB PO (08:23)
[2019-06-03] MEDS: HYDROCODONE/APAP (5/325) TAB PO (12:44)
== END 2019-06-03 13:35 | disposition home health service (06) | DRG 561 ==
LOC: VRC 17:13
PROC: F07Z5ZZ Bed Mobility Treatment (ICD-10-PCS; principal; 2019-05-20)
PROC: F08Z2ZZ Grooming/Personal Hygiene Treatment (ICD-10-PCS; 2019-05-20)
DX: Z47.1 Aftercare following joint replacement surgery (principal); Z96.641 Presence of right artificial hip joint; G89.18 Other acute postprocedural pain; I10 Essential (primary) hypertension; E11.9 Type 2 diabetes mellitus without complications; E78.5 Hyperlipidemia, unspecified; K21.9 Gastro-esophageal reflux disease without esophagitis; D50.9 Iron deficiency anemia, unspecified; E66.9 Obesity, unspecified; Z68.34 Body mass index [BMI] 34.0-34.9, adult; Z79.4 Long term (current) use of insulin; Z79.82 Long term (current) use of aspirin
CPT/HCPCS: 73510; 80048; 80053; 81001; 82962; 83036; 85025; 87081; 87086; 97110; 97112; 97116; 97150; 97163; 97166; 97530; 97535